=== PATIENT | female | born 1955 | race Caucasian/White ===

== ENCOUNTER 2019-08-23 17:38 | Emergency (ER) | payer MEDICARE, MEDICAID ==
[~2019-08-23] VITALS: Ht 165.1 cm; Wt 97.0 kg
[2019-08-23 18:55] LABS: CLARITY,URINE SLIGHTLY CLOUDY (Clear); COLOR,URINE YELLOW (Yellow); GLUCOSE, URINE NEGATIVE (Neg); KETONES,URINE NEGATIVE (Neg); LEUKOCYTE ESTERASE ,URINE NEGATIVE (Neg); NITRITES, URINE NEGATIVE (Neg); OCCULT BLOOD,URINE NEGATIVE (Neg); PROTEIN,URINE NEGATIVE (Neg); UA COLLECTION TYPE CLN CATCH MIDSTREAM; UROBILINOGEN,URINE 0.2 E.U/dL (0.2-1.0)
[2019-08-23 19:08] LABS: BACTERIA,URINE NONE SEEN /HPF (Neg); MUCUS STRANDS MODERATE /LPF (Neg); RBC,URINE NONE SEEN /HPF (0-2); SQUAMOUS EPITHELIAL CELL,UR FEW /LPF (FEW); WBC,URINE 0-4 /HPF (0-4)
[2019-08-23 19:09] LABS: AMORPHOUS PHOSPHATES 2+
[2019-08-23 20:23] LABS: BASOPHILS % (AUTO) 0.5 % (0-1); EOSINOPHILS # (AUTO) 0.2 X10'3 (0-0.9); HEMATOCRIT 39.2 % (35.0-45.0); HEMOGLOBIN 13.2 g/dl (12.0-16.0); LYMPHOCYTES # (AUTO) 2.4 X10'3 (1.1-4.8); LYMPHOCYTES % (AUTO) 34.3 % (21-51); MEAN CORPUSCULAR HGB CONC 33.8 g/dL (33.0-36.5); MEAN CORPUSCULAR VOLUME 91.9 FL (78-98); MEAN PLATELET VOLUME 8.5 FL (7.4-10.4); MONOCYTES # (AUTO) 0.7 X10'3 (0-0.9); MONOCYTES % (AUTO) 9.4 % (2-12); NEUTROPHILS # (AUTO) 3.7 X10'3 (1.8-7.7); NEUTROPHILS % (AUTO) 52.8 % (42-75); PLATELET COUNT 171 X10'3 (140-440); RED BLOOD COUNT 4.26 X10'6 (4.20-5.60); RED CELL DISTRIBUTION WIDTH 13.3 % (11.5-14.5); WHITE BLOOD COUNT 7.1 X10'3 (4.5-11.0)
[2019-08-23 20:44] LABS: ALANINE AMINOTRANSFERASE 22 U/L (12-78); ALBUMIN 3.3 G/DL (3.4-5.0); ALBUMIN/GLOBULIN RATIO 1.1 (1.1-1.5); ALKALINE PHOSPHATASE 74 IU/L (46-116); ANION GAP 5 (8-16); ASPARTATE AMINO TRANSFERASE 14 U/L (10-37); BILIRUBIN,TOTAL 0.4 MG/DL (0.1-1.0); BLOOD UREA NITROGEN 22 MG/DL (7-18); BUN/CREATININE RATIO 31.9 (6.6-38.0); CALCIUM 8.5 MG/DL (8.5-10.1); CHLORIDE 105 MMOL/L (99-107); CREATININE 0.69 MG/DL (0.40-0.90); GLUCOSE 91 MG/DL (70-104); LIPASE 163 U/L (73-393); POTASSIUM 3.7 MMOL/L (3.5-5.1); SODIUM 141 MMOL/L (135-145); TOTAL CARBON DIOXIDE 30.9 MMOL/L (24-32); TOTAL PROTEIN 6.2 G/DL (6.4-8.2); eGFR 85 ML/MIN
[2019-08-23 20:49] VITALS: BP 140/81
== END 2019-08-23 21:05 | disposition home or self-care (01) ==
LOC: ER 17:39
DX: R10.31 Right lower quadrant pain (principal); Z88.6 Allergy status to analgesic agent; Z88.5 Allergy status to narcotic agent
CPT/HCPCS: 36415; 74176; 80053; 81001; 83690; 85025; 99284

== ENCOUNTER 2020-11-16 11:36 | Emergency (ER) | payer MEDICARE, MEDICAID ==
[~2020-11-16] VITALS: Ht 168.9 cm; Wt 104.5 kg
[2020-11-16 11:44] VITALS: BP 161/74
[2020-11-16] MEDS ORDERED: TETanus/Pertussis (Acell)/Diphther VAC/PF (Tdap-Adult) 0.5ml syringe IMVAC ONE (13:10)
[2020-11-16] MEDS ORDERED: LIDOcaine 1% W/epiNEPHrine 1:200,000 10ml vial IJ ONE (13:10)
[2020-11-16] MEDS ORDERED: CEPH-585 PO (14:33)
== END 2020-11-16 14:48 | disposition home or self-care (01) ==
LOC: ER 11:36
DX: S61.011A Laceration without foreign body of right thumb without damage to nail, initial encounter (principal); Z88.6 Allergy status to analgesic agent; Z79.899 Other long term (current) drug therapy; W54.0XXA Bitten by dog, initial encounter; Y93.89 Activity, other specified; Y92.89 Other specified places as the place of occurrence of the external cause; Y99.8 Other external cause status
CPT/HCPCS: 12002; 73130; 90471; 90715; 99283

== ENCOUNTER 2021-01-01 11:18 | Emergency (ER) | payer MEDICARE, MEDICAID ==
[~2021-01-01] VITALS: Ht 167.6 cm; Wt 104.0 kg
[2021-01-01] MEDS ORDERED: ondansetron/PF 4mg/2ml inj IV ONE (12:25)
[2021-01-01] MEDS ORDERED: normal saline 1000ML IV soln IVB ONE (12:25)
[2021-01-01] MEDS ORDERED: ketorolac tromethamine 15mg/ml inj. IV ONE (12:25)
[2021-01-01 13:05] LABS: CLARITY,URINE CLEAR (Clear); COLOR,URINE YELLOW (Yellow); GLUCOSE, URINE NEGATIVE (Neg); KETONES,URINE NEGATIVE (Neg); LEUKOCYTE ESTERASE ,URINE MODERATE (Neg); NITRITES, URINE NEGATIVE (Neg); OCCULT BLOOD,URINE NEGATIVE (Neg); PH,URINE 6.5 (4.8-8.0); PROTEIN,URINE NEGATIVE (Neg); UROBILINOGEN,URINE 0.2 E.U/dL (0.2-1.0)
[2021-01-01 13:18] LABS: UA COLLECTION TYPE CLN CATCH MIDSTREAM
[2021-01-01 13:19] LABS: BACTERIA,URINE FEW /HPF (Neg); MUCUS STRANDS FEW /LPF (Neg); RBC,URINE 0-2 /HPF (0-2); SQUAMOUS EPITHELIAL CELL,UR MODERATE /LPF (FEW)
[2021-01-01 13:22] LABS: BASOPHILS % (AUTO) 0.7 % (0-1); EOSINOPHILS # (AUTO) 0.2 X10'3 (0-0.9); EOSINOPHILS % (AUTO) 3.5 % (0-6); HEMATOCRIT 36.3 % (35.0-45.0); HEMOGLOBIN 11.7 g/dl (12.0-16.0); LYMPHOCYTES # (AUTO) 1.5 X10'3 (1.1-4.8); LYMPHOCYTES % (AUTO) 30.2 % (21-51); MEAN CORPUSCULAR HEMOGLOBIN 27.4 PG (27.0-31.0); MEAN CORPUSCULAR HGB CONC 32.3 g/dL (33.0-36.5); MEAN CORPUSCULAR VOLUME 84.6 FL (78-98); MEAN PLATELET VOLUME 8.7 FL (7.4-10.4); MONOCYTES # (AUTO) 0.5 X10'3 (0-0.9); MONOCYTES % (AUTO) 11.2 % (2-12); NEUTROPHILS # (AUTO) 2.6 X10'3 (1.8-7.7); NEUTROPHILS % (AUTO) 54.4 % (42-75); PLATELET COUNT 197 X10'3 (140-440); RED BLOOD COUNT 4.29 X10'6 (4.20-5.60); RED CELL DISTRIBUTION WIDTH 15.1 % (11.5-14.5); WHITE BLOOD COUNT 4.8 X10'3 (4.5-11.0)
[2021-01-01] MEDS ORDERED: iohexol 300mg/ml 100ml inj. ONE (13:31)
[2021-01-01 13:37] LABS: ALANINE AMINOTRANSFERASE 27 U/L (12-78); ALBUMIN 3.4 G/DL (3.4-5.0); ALKALINE PHOSPHATASE 96 IU/L (46-116); ANION GAP 5 (8-16); ASPARTATE AMINO TRANSFERASE 19 U/L (10-37); BILIRUBIN,TOTAL 0.5 MG/DL (0.1-1.0); BLOOD UREA NITROGEN 28 MG/DL (7-18); BUN/CREATININE RATIO 36.4 (6.6-38.0); CALCIUM 8.6 MG/DL (8.5-10.1); CHLORIDE 107 MMOL/L (99-107); CREATININE 0.77 MG/DL (0.40-0.90); GLUCOSE 91 MG/DL (70-104); POTASSIUM 3.9 MMOL/L (3.5-5.1); SODIUM 142 MMOL/L (135-145); TOTAL CARBON DIOXIDE 29.8 MMOL/L (24-32); TOTAL PROTEIN 6.8 G/DL (6.4-8.2); eGFR 75 ML/MIN
[2021-01-01] MEDS ORDERED: CEPH500C82 PO (15:16)
[2021-01-01] MEDS ORDERED: POLY119P2 PO (15:17)
[2021-01-01] MEDS ORDERED: ONDA4TAB6 PO (15:17)
[2021-01-01 15:49] VITALS: BP 137/78
== END 2021-01-01 15:51 | disposition home or self-care (01) ==
LOC: ER 11:19
DX: N12 Tubulo-interstitial nephritis, not specified as acute or chronic (principal); K59.00 Constipation, unspecified; Z88.6 Allergy status to analgesic agent; Z88.5 Allergy status to narcotic agent; Z79.899 Other long term (current) drug therapy
CPT/HCPCS: 36415; 74177; 80053; 81001; 85025; 87077; 87088; 87186; 93005; 96361; 96374; 96375; 99285; J1885; J2405; J7030; Q9967

== ENCOUNTER 2021-01-15 12:50 | Emergency (ER) | payer MEDICARE, MEDICAID ==
[~2021-01-15] VITALS: Ht 167.6 cm; Wt 105.9 kg
[~2021-01-15 12:50] MED LIST: ONDA4TAB6 PO; POLY119P2 PO
[2021-01-15 13:10] VITALS: BP 118/75
[2021-01-15] MEDS ORDERED: ketorolac tromethamine 15mg/ml inj. IM ONE (13:55)
== END 2021-01-15 14:51 | disposition home or self-care (01) ==
LOC: ER 12:50
DX: S93.692A Other sprain of left foot, initial encounter (principal); Z88.6 Allergy status to analgesic agent; Z88.5 Allergy status to narcotic agent; Z79.899 Other long term (current) drug therapy; X58.XXXA Exposure to other specified factors, initial encounter; Y93.89 Activity, other specified; Y92.89 Other specified places as the place of occurrence of the external cause; Y99.8 Other external cause status
CPT/HCPCS: 73590; 73630; 96372; 99284; J1885

== ENCOUNTER 2021-08-15 15:53 | Emergency (ER) | payer MEDICARE, MEDICAID ==
[~2021-08-15] VITALS: Ht 165.1 cm; Wt 105.9 kg
[2021-08-15 16:31] VITALS: BP 133/65
[2021-08-15] MEDS ORDERED: CYCL-1 PO (19:39)
[2021-08-15] MEDS ORDERED: IBUP-1984 PO (19:39)
== END 2021-08-15 19:10 | disposition home or self-care (01) ==
LOC: ER 15:53
DX: S39.012A Strain of muscle, fascia and tendon of lower back, initial encounter (principal); Z88.8 Allergy status to other drugs, medicaments and biological substances; Z79.899 Other long term (current) drug therapy; W19.XXXA Unspecified fall, initial encounter; Y93.89 Activity, other specified; Y92.89 Other specified places as the place of occurrence of the external cause; Y99.8 Other external cause status
CPT/HCPCS: 72128; 72131; 99284

== ENCOUNTER 2021-12-08 12:25 | Emergency (ER) | payer MEDICARE, MEDICAID ==
[~2021-12-08] VITALS: Ht 165.1 cm; Wt 108.6 kg
[~2021-12-08 12:25] MED LIST changes: +CYCL-1 PO
[2021-12-08] MEDS ORDERED: BENZ-38 PO (15:08)
[2021-12-08] MEDS ORDERED: PRED10TA23 PO (15:08)
[2021-12-08] MEDS ORDERED: ALBU6.7H9 INH (15:08)
[2021-12-08] MEDS ORDERED: BUDE180A INH (15:08)
[2021-12-08] MEDS: SOTROVIMAB 500mg injection 500 MG in normal saline 100ml IV soln 100 ML IV ONE (15:43)
[2021-12-08 16:30] VITALS: BP 144/69
== END 2021-12-08 17:27 | disposition home or self-care (01) ==
LOC: ER 12:25
DX: U07.1 COVID-19 (principal); J44.9 Chronic obstructive pulmonary disease, unspecified; R07.89 Other chest pain; R05.9 Cough, unspecified; F17.200 Nicotine dependence, unspecified, uncomplicated; Z88.6 Allergy status to analgesic agent; Z88.8 Allergy status to other drugs, medicaments and biological substances; Z79.899 Other long term (current) drug therapy
CPT/HCPCS: 71045; 87635; 99284; C9803; J3490; M0247; Q0247

== ENCOUNTER 2022-03-19 10:29 | Emergency (ER) | payer MEDICARE, MEDICAID ==
[~2022-03-19] VITALS: Ht 167.6 cm; Wt 110.5 kg
[~2022-03-19 10:29] MED LIST changes: +ALBU6.7H9 INH; +BUDE180A INH
[2022-03-19 10:36] VITALS: BP 139/64
[2022-03-19] MEDS ORDERED: CEPH500C2 PO (10:58)
== END 2022-03-19 11:08 | disposition home or self-care (01) ==
LOC: ER 10:29
DX: L03.012 Cellulitis of left finger (principal); M79.645 Pain in left finger(s); J44.9 Chronic obstructive pulmonary disease, unspecified; Z88.6 Allergy status to analgesic agent; Z88.8 Allergy status to other drugs, medicaments and biological substances; Z79.2 Long term (current) use of antibiotics; Z79.899 Other long term (current) drug therapy
CPT/HCPCS: 99283

== ENCOUNTER 2023-05-27 18:29 | Emergency (ER) | payer MEDICARE, MEDICAID ==
[~2023-05-27] VITALS: Ht 167.6 cm; Wt 90.5 kg
[~2023-05-27 18:29] MED LIST changes: +ALBU6.7H14 INH; -ALBU6.7H9 INH
[2023-05-27 18:35] VITALS: TEMP 98.6
[2023-05-27] MEDS ORDERED: normal saline 1000ml 1,000 ML IV ONE ×2 (19:45→20:50)
[2023-05-27 19:54] LABS: BASOPHILS % (AUTO) 0.6 % (0-1); EOSINOPHILS # (AUTO) 0.1 X10'3 (0-0.9); HEMATOCRIT 42.5 % (35.0-45.0); LYMPHOCYTES # (AUTO) 1.6 X10'3 (1.1-4.8); LYMPHOCYTES % (AUTO) 24.7 % (21-51); MEAN CORPUSCULAR HEMOGLOBIN 28.8 PG (27.0-31.0); MEAN CORPUSCULAR HGB CONC 32.9 g/dL (33.0-36.5); MEAN CORPUSCULAR VOLUME 87.5 FL (78-98); MONOCYTES # (AUTO) 0.7 X10'3 (0-0.9); MONOCYTES % (AUTO) 10.4 % (2-12); NEUTROPHILS % (AUTO) 62.3 % (42-75); PLATELET COUNT 177 X10'3 (140-440); RED BLOOD COUNT 4.86 X10'6 (4.20-5.60); RED CELL DISTRIBUTION WIDTH 17.5 % (11.5-14.5); WHITE BLOOD COUNT 6.4 X10'3 (4.5-11.0)
[2023-05-27 20:02] LABS: ALANINE AMINOTRANSFERASE 21 U/L (12-78); ALBUMIN 3.5 G/DL (3.4-5.0); ALBUMIN/GLOBULIN RATIO 1.1 (1.1-1.5); ALKALINE PHOSPHATASE 78 IU/L (46-116); ANION GAP 4 (8-16); ASPARTATE AMINO TRANSFERASE 20 U/L (10-37); BILIRUBIN,TOTAL 0.4 MG/DL (0.1-1.0); BLOOD UREA NITROGEN 19 MG/DL (7-18); CALCIUM 8.9 MG/DL (8.5-10.1); CHLORIDE 104 MMOL/L (99-107); CREATININE 0.73 MG/DL (0.40-0.90); GLUCOSE 88 MG/DL (70-104); LIPASE 69 U/L (73-393); POTASSIUM 3.9 MMOL/L (3.5-5.1); SODIUM 139 MMOL/L (135-145); TOTAL CARBON DIOXIDE 30.7 MMOL/L (24-32); TOTAL PROTEIN 6.7 G/DL (6.4-8.2); eCRCL 67 ML/MIN; eGFR 79 ML/MIN
[2023-05-27] MEDS ORDERED: magnesium citrate 296ml oral solution PO ONE (20:50)
[2023-05-27] MEDS ORDERED: lactulose 20gm/30ml cup PO ONE (20:50)
[2023-05-27] MEDS ORDERED: bisacodyl 10mg suppository rectal RC ONE (20:50)
[2023-05-27] MEDS ORDERED: ondansetron/PF 4mg/2ml inj IV ONE (22:15)
[2023-05-27] MEDS ORDERED: morphine 4 MG/ML inj SYRINge IV ONE (22:15)
[2023-05-27] MEDS ORDERED: iohexol 300mg/ml 100ml inj. ONE (22:17)
[2023-05-28] MEDS ORDERED: morphine 4 MG/ML inj SYRINge IV ONE (00:05)
[2023-05-28 01:02] VITALS: BP 138/64; PULSE 65; RESP 16; O2SAT 99
== END 2023-05-28 01:04 | disposition home or self-care (01) ==
LOC: ER 18:30
DX: K59.00 Constipation, unspecified (principal); R10.84 Generalized abdominal pain; J44.9 Chronic obstructive pulmonary disease, unspecified; Z88.6 Allergy status to analgesic agent; Z88.5 Allergy status to narcotic agent; Z79.899 Other long term (current) drug therapy
CPT/HCPCS: 36415; 74022; 74177; 80053; 83605; 83690; 85025; 96361; 96374; 96375; 96376; 99285; J2270; J2405; J3490; J7030; Q9967

== ENCOUNTER 2023-08-20 14:45 | Emergency (ER) | payer MEDICARE, MEDICAID ==
[~2023-08-20] VITALS: Ht 165.1 cm; Wt 0.9 kg
[2023-08-20 15:09] VITALS: BP 150/71; PULSE 66; RESP 18; O2SAT 98
[2023-08-20] MEDS ORDERED: PRED20TA PO (17:20)
[2023-08-20] MEDS ORDERED: METH-797 PO (17:20)
[2023-08-20 17:46] VITALS: TEMP 97.9
== END 2023-08-20 17:52 | disposition home or self-care (01) ==
LOC: ER 14:46
DX: M54.42 Lumbago with sciatica, left side (principal); Z96.642 Presence of left artificial hip joint; J44.9 Chronic obstructive pulmonary disease, unspecified; Z88.8 Allergy status to other drugs, medicaments and biological substances; Z79.899 Other long term (current) drug therapy
CPT/HCPCS: 73502; 99283

== ENCOUNTER 2024-03-28 15:46 | Outpatient (CLI) | payer MEDICARE, MEDICAID ==
[~2024-03-28] VITALS: Ht 165.1 cm; Wt 97.1 kg
[~2024-03-28 15:46] MED LIST changes: +METH-797 PO
[2024-03-28] MEDS ORDERED: albuterol 2.5 MG/3 ML nebule NEB ONE (16:30)
[2024-03-28] MEDS: albuterol 2.5 MG/3 ML nebule NEB ONE (16:30)
[2024-03-28 16:33] VITALS: PULSE 65; RESP 16; O2SAT 95
[2024-03-28 16:58] VITALS: PULSE 75; RESP 16
== END 2024-03-28 23:59 | disposition home or self-care (01) ==
LOC: RT 15:46
PROVIDERS: ATTEND Family Medicine
DX: J44.9 Chronic obstructive pulmonary disease, unspecified (principal); R05.3 Chronic cough
CPT/HCPCS: 94060; 94760; Z7610

== ENCOUNTER 2024-08-15 19:00 | Emergency (ER) | payer MEDICARE, MEDICAID ==
[~2024-08-15] VITALS: Ht 165.1 cm; Wt 103.0 kg
[~2024-08-15 19:00] MED LIST changes: -BUDE180A INH; +BUDE180A5 INH
[2024-08-15 20:16] VITALS: BP 146/80; PULSE 77; RESP 16; TEMP 98.2; O2SAT 98
== END 2024-08-15 20:17 | disposition home or self-care (01) ==
LOC: ER 19:01
DX: S93.401A Sprain of unspecified ligament of right ankle, initial encounter (principal); J44.9 Chronic obstructive pulmonary disease, unspecified; X50.1XXA Overexertion from prolonged static or awkward postures, initial encounter; Z88.5 Allergy status to narcotic agent; Y93.01 Activity, walking, marching and hiking; Y92.89 Other specified places as the place of occurrence of the external cause; Y99.8 Other external cause status
CPT/HCPCS: 73610; 73630; 99284; A6449